=== PATIENT | male | born 1930 | race Caucasian/White ===

== ENCOUNTER 2016-07-30 15:15 | Inpatient (IN) | payer OTHER ==
[~2016-07-30] VITALS: Ht 188 cm; Wt 77.3 kg
--- NOTE | ~2016-07-30 | HC ---
[facility] [place] [address] CONSULTATION Name: TAB RICHARDS Room #: 202-P ADM IN M.R.#: [id number] Admission: 07/30/16 Attend Phys: Christa Mata MD Discharge: Date of : [birth year] Report #: [id number] THIS REPORT FOR: //name// CC: FAM unknown Christa Mata DATE OF SERVICE: 07/31/2016 INDICATION: Dyspnea. HISTORY OF PRESENT ILLNESS: This is an 85-year-old gentleman presenting with several days of increasing shortness of breath. Just walking from room to room will elicit dyspnea. He has history of nonischemic cardiomyopathy, mitral regurgitation, and chronic atrial fibrillation. He also reports having problems with balance when he walks. There is no history of fever, chills, PND, or congestion. PAST MEDICAL HISTORY: Echo from February 2016 reveals moderate global LV dysfunction with severe mitral regurgitation. He has a prior history of nonischemic cardiomyopathy with prior hospitalizations for heart failure. Chronic atrial fibrillation, on anticoagulation therapy. Hypertension, hypercholesterolemia, chronic renal insufficiency, obstructive sleep apnea and spinal stenosis. ALLERGIES: MOXIFLOXACIN. MEDICATIONS: At home include Coumadin, Coreg 6.25 mg twice a day, atorvastatin 20 mg, potassium, aspirin once a day, digoxin 0.125 mg twice a day, Flomax. SOCIAL HISTORY: Denies tobacco use. FAMILY HISTORY: Negative for premature CAD. REVIEW OF SYSTEMS: A full 10-point review of systems performed. Only the pertinent positives and negatives are described in the HPI. PHYSICAL EXAMINATION: VITAL SIGNS: Blood pressure is 100/60, heart rate is 95 beats per minute. GENERAL APPEARANCE: This is an elderly appearing male in no acute respiratory distress. HEAD AND EYES: Normocephalic. Sclerae are anicteric. ENT: Oral mucosa moist. NECK: Supple. LUNGS: Diminished breath sounds at the bases. CARDIAC: S1, S2 positive. ABDOMEN: Soft, nontender. [facility] [address] [place] [address] CONSULTATION Name: TAB RICHARDS Room #: 202-P ADM IN ..#: [id number] Admission: 07/30/16 Attend Phys: Christa Mata MD Discharge: Date of : [birth year] Report #: [id number] EXTREMITIES: No major joint deformities. Trace lower extremity edema. LABORATORY VALUES: Troponin is negative. Sodium is 139, creatinine is 1.5. Digoxin level yesterday is less than 0.02. White count is 9.8, hemoglobin is 14.1. ASSESSMENT: 1. 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 2. Severe mitral regurgitation, as above we will continue with Lasix. Given his age and comorbidities, he is not a candidate for surgery. 3. Chronic atrial fibrillation with high heart rates. He is only on low dose Coreg and digoxin. Unable to add additional medications in view of low blood pressure. We will add amiodarone to help control the heart rate. 4. Hypercholesterolemia, continue with meds. 5. Chronic renal insufficiency. 6. Sleep apnea Thank you for allowing me to participate in the care of your patient. <ELECTRONICALLY SIGNED> By: Hawk Chadwick MD 08/01/16 0748 1322 [id number] Hawk Chadwick MD /nt
--- NOTE | ~2016-07-30 | EKG ---
[place] [address] [facility] [facility] [place] [address] ELECTROCARDIOGRAM REPORT Name: TAB RICHARDS [facility] [id number] Admission: 07/30/16 Attend Phys: Discharge: Date of : [birth year] Report #: [id number] THIS REPORT FOR: //name// 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
[~2016-07-30 15:15] MED LIST: ACCUPRIL PO; ADULT LOW DOSE81 MG PO; ALDACTONE25 MG PO; ALLEGRA180 MG PO; CARVEDILOL3.125 MG PO; CARVEDILOL6.25 MG PO; CELEBREX 200 M200 MG PO; CENTRUM CHEWAB1 EACH PO; CENTRUM PO; CENTRUM SILVER1 EAC4 PO; CENTRUM TABLET1 EACH PO; CITRACAL + D C1 EACH PO; CITRACAL + D M1 EACH PO; CLEOCIN HCL150 MG PO; COUMADIN 2 MG TA2 M1 PO; COUMADIN 4 MG TA4 M1 PO; COUMADIN 5 MG TA5 M1 PO; COUMADIN7.5 MG PO; DIGOXIN OR; DULCOLAX RE; ERGOCALCIF50000 UNIT PO; FISH OIL 1,001000 M2 PO; FISH OIL500 M1 PO; FISHOIL OR; FISHOIL PO; FLOMAX PO; FLOMAX0.4 MG PO; FLONASE 0.05%50 MCG NASAL; FUROSEMIDE 20 M20 M1 PO; GLUCOSAMINE SU500 MG PO; KLOR-CON; KLOR-CON 10 ER10 MEQ PO; LANOXIN 0.120.125 M1 PO; LANOXIN 0.250.25 MG PO; LASIX 40 MG TAB40 M2 PO; LIDODERM 5%1 PATC1 TOP; LIPITOR 20 MG T20 M1 PO; LIPITOR20 MG PO; MAG-OX 400 TAB400 MG PO; MAGOX 400400 MG PO; NASONEX17 GM NASAL; NORCO 5-325 TA1 EACH PO; PERCOCET 10-321 EACH; PREVACID 30MG C30 M1 PO; PROVIGIL 200 M200 M1 PO; SKELAXIN 800 M800 M1 PO; SLOW-MAG64 M1 PO; TOPROL XL50 MG PO; VITAMIN B-625 MG PO; ZITHROMAX250 MG PO; [UNRECOGNIZED DRUG - OTHER] PO
[2016-07-30 15:16] VITALS: BP 119/73
[2016-07-30 16:06] LABS: HEMATOCRIT 42.3 % (42.0-52.0); HEMOGLOBIN 14.1 gm/dL (14.0-18.0); MCH 29.5 pg (26.0-34.0); MCHC 33.2 % (28.0-37.0); MCV 88.7 fL (80.0-100.0); PLATELET COUNT 188 thou/uL (150-400); RBC 4.77 mil/uL (4.50-6.00); RDW 16.8 % (10.5-14.5); WBC 9.8 thou/uL (4.0-11.0)
[2016-07-30 16:08] LABS: MANUAL DIFF YES
[2016-07-30 16:18] LABS: ANION GAP 12 mmol/L (7-16); BUN 40 mg/dL (7-18); CALCIUM 9.7 mg/dL (8.5-10.1); CHLORIDE 99 mmol/L (98-107); CO2 24 mmol/L (21-32); CREATININE 1.5 mg/dL (0.6-1.3); GLUCOSE 130 mg/dL (70-99); POTASSIUM 5.7 mmol/L (3.5-5.1); SODIUM 135 mmol/L (136-145)
[2016-07-30 16:21] LABS: INR 1.6; PROTIME 16.1 Seconds (9.3-11.4)
[2016-07-30 16:27] LABS: ABSOLUTE NEUTROPHILS 8.1 thou/uL (1.4-8.2); TOTAL CELL COUNT 100
[2016-07-30 16:30] LABS: ALBUMIN 3.9 g/dL (3.4-5.0); ALKALINE PHOSPHATASE 119 U/L (46-116); DIRECT BILIRUBIN 0.7 mg/dL (<0.1-0.3); MAGNESIUM 2.2 mg/dL (1.8-2.4); NT-PRO BRAIN NAT PEPTIDE 11680 pg/mL (<300); SGOT 78 U/L (15-37); SGPT 61 U/L (30-65); TOTAL PROTEIN 7.5 g/dL (6.4-8.2); TROPONIN-I < 0.04 ng/mL (<0.04-0.07)
[2016-07-30 19:49] VITALS: BP 104/76
[2016-07-30 20:29] VITALS: BP 111/74
[2016-07-30 21:38] VITALS: BP 100/54; BP 111/74
[2016-07-31 00:38] VITALS: BP 95/64
[2016-07-31 03:46] VITALS: BP 92/51
[2016-07-31 04:41] LABS: INR 1.6; PROTIME 16.2 Seconds (9.3-11.4)
[2016-07-31 04:43] LABS: ALBUMIN 3.2 g/dL (3.4-5.0); CALCIUM 8.8 mg/dL (8.5-10.1); CREATININE 1.5 mg/dL (0.6-1.3); PHOSPHORUS 4.6 mg/dL (2.5-4.9)
[2016-07-31 07:15] VITALS: BP 88/57
[2016-07-31 10:33] VITALS: BP 92/61
[2016-07-31 11:15] VITALS: BP 123/78; BP 96/58
[2016-07-31 15:45] VITALS: BP 102/70
[2016-07-31 16:14] LABS: URINE BILIRUBIN NEGATIVE (Negative); URINE BLOOD NEGATIVE (Negative); URINE COLOR YELLOW; URINE GLUCOSE-RANDOM* NEGATIVE (Negative); URINE KETONES NEGATIVE (Negative); URINE LEUKOCYTES-REFLEX NEGATIVE (Negative); URINE PROTEIN (DIPSTICK) NEGATIVE (Negative); URINE UROBILINOGEN 0.2 E.U./dl (0.2-1.0)
[2016-08-01 03:40] VITALS: BP 101/65
[2016-08-01 04:19] LABS: HEMATOCRIT 37.7 % (42.0-52.0); HEMOGLOBIN 12.6 gm/dL (14.0-18.0); MCH 29.7 pg (26.0-34.0); MCHC 33.5 % (28.0-37.0); MCV 88.6 fL (80.0-100.0); RBC 4.25 mil/uL (4.50-6.00); RDW 16.5 % (10.5-14.5); WBC 8.6 thou/uL (4.0-11.0)
[2016-08-01 04:23] LABS: INR 1.4; PROTIME 14.7 Seconds (9.3-11.4)
[2016-08-01 04:40] LABS: CALCIUM 8.5 mg/dL (8.5-10.1); CREATININE 1.4 mg/dL (0.6-1.3); POTASSIUM 3.2 mmol/L (3.5-5.1)
[2016-08-01 08:30] VITALS: BP 101/68
[2016-08-01 10:45] VITALS: BP 103/83
[2016-08-01 15:32] VITALS: BP 91/63
[2016-08-01 17:00] VITALS: BP 104/62
[2016-08-01 20:28] VITALS: BP 86/56
[2016-08-02 00:53] LABS: INR 1.8; PROTIME 18.3 Seconds (9.3-11.4)
[2016-08-02 03:31] VITALS: BP 105/79
[2016-08-02 08:01] LABS: CALCIUM 8.2 mg/dL (8.5-10.1); CREATININE 1.1 mg/dL (0.6-1.3); POTASSIUM 3.7 mmol/L (3.5-5.1)
[2016-08-02 08:25] VITALS: BP 114/79
[2016-08-02 11:23] VITALS: BP 98/66
[2016-08-02 16:59] VITALS: BP 113/79
[2016-08-03] VITALS (7 sets, daily range): BP systolic 84–168; BP diastolic 47–98
[2016-08-03 04:43] LABS: INR 2.3; PROTIME 23.4 Seconds (9.3-11.4)
[2016-08-03] MEDS ORDERED: LASIX 40 MG TAB40 M2 PO (11:41)
[2016-08-03] MEDS ORDERED: COUMADIN 5 MG TA5 M1 PO (11:41)
[2016-08-03] MEDS ORDERED: PEPCID20 MG PO (11:41)
[2016-08-03] MEDS ORDERED: PACERONE 200 M200 M1 PO (11:41)
[2016-08-04 03:35] VITALS: BP 100/63
[2016-08-04 04:11] LABS: INR 2.9; PROTIME 30.2 Seconds (9.3-11.4)
[2016-08-04 04:12] LABS: CALCIUM 8.5 mg/dL (8.5-10.1); POTASSIUM 3.9 mmol/L (3.5-5.1)
[2016-08-04 07:45] VITALS: BP 96/61
[2016-08-04 11:45] VITALS: BP 99/63
[2016-08-04 16:40] VITALS: BP 96/57
[2016-08-04 19:45] VITALS: BP 106/71
[2016-08-05 03:37] LABS: INR 3.9; PROTIME 40.7 Seconds (9.3-11.4)
[2016-08-05 04:00] VITALS: BP 96/60
[2016-08-05 08:20] VITALS: BP 94/49
[2016-08-05 13:15] VITALS: BP 90/54
== END 2016-08-05 14:12 | DRG 682 ==
LOC: ER 15:15 → 2N 19:10 → EROBS 19:10 → 2N 19:49
PROVIDERS: Family Medicine; Hospitalist; Internal Medicine Cardiovascular Disease; Nurse Practitioner Gerontology; Physician Assistant
DX: N17.9 Acute kidney failure, unspecified (principal); I50.23 Acute on chronic systolic (congestive) heart failure; I42.8 Other cardiomyopathies; I13.0 Hypertensive heart and chronic kidney disease with heart failure and stage 1 through stage 4 chronic kidney disease, or unspecified chronic kidney disease; Z96.653 Presence of artificial knee joint, bilateral; G25.81 Restless legs syndrome; G62.9 Polyneuropathy, unspecified; N40.0 Benign prostatic hyperplasia without lower urinary tract symptoms; I48.2 Chronic atrial fibrillation; E03.9 Hypothyroidism, unspecified; E78.00 Pure hypercholesterolemia, unspecified; R41.0 Disorientation, unspecified; I34.0 Nonrheumatic mitral (valve) insufficiency; M48.00 Spinal stenosis, site unspecified; G47.33 Obstructive sleep apnea (adult) (pediatric); E87.5 Hyperkalemia; Z79.82 Long term (current) use of aspirin; F03.90 Unspecified dementia, unspecified severity, without behavioral disturbance, psychotic disturbance, mood disturbance, and anxiety; I27.2 Other secondary pulmonary hypertension; Z79.899 Other long term (current) drug therapy; Z98.42 Cataract extraction status, left eye; Z98.41 Cataract extraction status, right eye; Z79.01 Long term (current) use of anticoagulants; Z88.1 Allergy status to other antibiotic agents; N18.9 Chronic kidney disease, unspecified; I50.9 Heart failure, unspecified
CPT/HCPCS: 10081